=== PATIENT | female | born 1965 | race Caucasian/White ===

== ENCOUNTER 2019-12-23 17:05 | Emergency (ER) | payer BC ==
[2019-12-23] MEDS ORDERED: Fluorescein 1 MG Ophth Strip EYELF ONE (17:38)
[2019-12-23] MEDS ORDERED: Proparacaine 0.5% Ophth Soln 15 ML Bottle EYELF ONE (17:54)
--- NOTE | 2019-12-23 18:20 | EDM.PDOC ---
ED HPI GENERAL MEDICAL PROBLEM - General Chief Complaint: Eye Problems Stated Complaint: L EYE INJURY Time Seen by Provider: 12/23/19 17:38 Source of Information: Reports: Patient, RN Notes Reviewed History Limitations: Reports: No Limitations - History of Present Illness INITIAL COMMENTS - FREE TEXT/NARRATIVE: Patient is a 54-year-old female who presents to the ED for the evaluation of a left eye injury. The patient states she was at home, using a hammer, when a nail broke off, and ended up hitting her in the left eye. The patient states that her vision field in her left eye is very cloudy, and she cannot see anything out of the left eye. The whole eye itself, sclera appears red and irritated, and the patient's eye is watering. Of note the patient was wearing contacts, and I cannot see any intact contact on the patient's eye. Patient notes she had no vision issues prior to this injury. Left Eye Pain Score (Numeric/FACES): 3 - Related Data Allergies Allergy/AdvReac Type Severity Reaction Status Date / Time No Known Allergies Allergy Verified 12/23/19 17:34 Home Meds: Home Meds . [No Known Home Meds] 03/18/18 [History] Past Medical History HEENT History: Reports: Other (See Below) Other HEENT History: wears glasses - Past Surgical History Female Surgical History: Reports: Tubal Ligation Musculoskeletal Surgical History: Reports: Arthroscopic Knee Social & Family History - Tobacco Use Smoking Status *Q: Never Smoker - Recreational Drug Use Recreational Drug Use: No ED ROS GENERAL - Review of Systems Review Of Systems: See Below HEENT: Reports: Eye Pain, Vision Change (Left eye vision loss/cloudy). Denies: Eye Discharge ED EXAM GENERAL W FULL EYE - Physical Exam Exam: See Below Exam Limited By: No Limitations General Appearance: Alert, WD/WN, No Apparent Distress Eye Exam: Right Eye: Normal Inspection, PERRL, Left Eye: Conjunctival Injection , Vision Changes (pt cannot tell I am holding 2 fingers up around 4 feet) Eyelids: Bilateral: Normal Appearance Conjunctiva & Sclera: Right: Normal Appearance, Left: Injected Cornea Exam: Right: Normal Appearance, Left: Cloudy Cornea (hyphema noted to full pupil surface) Pupillary Size: Right: 3 mm (cannot visualize left pupil) Pupillary Reaction: Right: Brisk Head: Atraumatic, Normocephalic. No: Facial Swelling, Facial Tenderness Respiratory/Chest: No Respiratory Distress, Lungs Clear, Normal Breath Sounds, No Accessory Muscle Use, Chest Non-Tender Psychiatric: Normal Affect, Normal Mood Skin Exam: Warm, Dry, Intact, Normal Color, No Rash Course - Vital Signs Last Recorded V/S: Last Vital Signs Temp 97.5 F 12/23/19 17:33 Pulse 69 12/23/19 17:33 Resp 16 12/23/19 17:33 BP 134/81 12/23/19 17:33 Pulse Ox 100 12/23/19 17:33 - Orders/Labs/Meds Orders: Active Orders 24 hr Category Date Time Status Vaccines to be Administered [RC] PER UNIT ROUTINE Care 12/23/19 18:58 Active Maxillofacial with CM [Max Facial Sinus w Cont] [CT] Exams 12/23/19 17:59 Taken Stat Meds: Medications Discontinued Medications Generic Name Dose Route Start Last Admin Trade Name Freq PRN Reason Stop Dose Admin Diphtheria/Tetanus/Acell Pertussis 0.5 ml 12/23/19 18:58 12/23/19 19:15 Adacel IM 12/23/19 18:59 0.5 ml .ONCE ONE Administration Fluorescein Sodium 1 mg 12/23/19 17:38 Ful-Gianna EYELF 12/23/19 17:39 ONETIME ONE Proparacaine HCl 1 ml 12/23/19 17:54 Proparacaine 0.5% Ophth Soln EYELF 12/23/19 17:55 ONETIME ONE - Re-Assessments/Exams Free Text/Narrative Re-Assessment/Exam: 12/23/19 18:22 Patient presents to the ED for a left eye injury. After initially examining the patient, there is a more urgent matter in nature, as I do believe the patient's vision is in jeopardy. Dr. Abreu was involved with the patient's care, as this was called as a trauma alert after I had initially evaluated the patient. He notes that there is a hyphema present, and does appear to take up the full left corneal/pupillary surface. I did call [facility] for ophthalmology consult, I did get to talk with their ER doctor Dr. Velez, and Dr. Peacock the production support consultant, they recommend getting a maxillofacial or orbit CT to evaluate for any retained metal foreign body or globe rupture. I did order this, patient will get the scans, and likely be sent to [place] for further evaluation and treatment, patient is okay with this plan at this time. 12/23/19 19:[address] has been obtained, I cannot appreciate any obvious metal foreign body within the eye, there is an air-fluid level present within the globe itself. Official radiology read is still pending. As soon as we get the radiology read , we will transfer the patient to the [facility] in [place] under the care of Dr. Peacock. 12/23/19 21:[address] has been read, apparently was done a while back, and we did not get a print out. Impression is 1. Deformed left globe compatible with rupture. 2 mild mucosal thickening within the left inferior maxillary sinus was most likely chronic. 3 no acute facial bone fracture is seen. He does not comment in any sort of metallic foreign body, so I would assume that there was none seen. Departure - Departure Time of Disposition: 18:24 Disposition: DC/Tfer to Other 70 Condition: Fair Clinical Impression: Hyphema of left eye Blunt trauma, left eye Qualifiers: Encounter type: initial encounter Qualified Code(s): S05.8X2A - Other injuries of left eye and orbit, initial encounter - Discharge Information *PRESCRIPTION DRUG MONITORING PROGRAM REVIEWED*: No *COPY OF PRESCRIPTION DRUG MONITORING REPORT IN PATIENT NELDA: No Instructions: Hyphema Referrals: PCP,None [Primary Care Provider] - Forms: ED Department Discharge Additional Instructions: You were evaluated in the ER regarding your left eye injury. Ophthalmology was consulted on your case, they recommended that you have a CT done at this facility to evaluate for any sort of metallic retained foreign body. The CT demonstrated You will need to drive to [facility] for further evaluation and management , the production support consultant, Dr. Peacock has excepted you for evaluation of his clinic , this is located at [address] [facility] in [facility]. Upon discharge from the ER, you will need to drive directly there for further management. The telephone number there is [phone], if you should have any questions/ concerns upon your travel to their facility. Sepsis Event Note - Evaluation Sepsis Screening Result: No Definite Risk - Focused Exam Vital Signs: Vital Signs Temp Pulse Resp BP Pulse Ox 12/23/19 17:33 97.5 F 69 16 134/81 100 Date Exam was Performed: 12/23/19 Time Exam was Performed: 21:32 - My Orders Last 24 Hours: My Active Orders 12/23/19 17:59 Maxillofacial with CM [Max Facial Sinus w Cont] [CT] Stat 12/23/19 18:58 Vaccines to be Administered [RC] PER UNIT ROUTINE - Assessment/Plan Last 24 Hours: My Active Orders 12/23/19 17:59 Maxillofacial with CM [Max Facial Sinus w Cont] [CT] Stat 12/23/19 18:58 Vaccines to be Administered [RC] PER UNIT ROUTINE
[2019-12-23] MEDS ORDERED: Diphtheria,Pertussis(Acell),Tetanus Vaccine 0.5 ML Syringe IM ONE (18:58)
--- NOTE | 2019-12-24 14:46 | CT ---
CT facial structures Multiple axial sections through the orbits were obtained. Intravenous contrast was utilized. Findings: Left globe is smaller than the right globe with deformity. There is indentation posteriorly where the optic nerve connects to the left globe. Small amount of air is seen in uncertain whether this is within the superficial soft tissues of the left globe or adjacent to the globe. Other orbital structures on the left side appear within normal limits. Right globe appears normal in size. Right orbital structures are within normal limits. Mild mucosal thickening is seen within the left inferior maxillary sinus. No acute fracture is appreciated. Impression: 1. Deformed left globe compatible with rupture. 2. Mild mucosal thickening within the left inferior maxillary sinus which is most likely chronic. 3. No acute facial bone fracture is seen. Diagnostic code #3 This report was dictated in MDT MTDD
== END 2019-12-23 19:35 | disposition other institution (70) ==
LOC: JD.ED 17:05
DX: S05.12XA Contusion of eyeball and orbital tissues, left eye, initial encounter (principal); W22.8XXA Striking against or struck by other objects, initial encounter
CPT/HCPCS: 70487; 70487-26; 90471; 90715; 99283; 99284-25